=== PATIENT | female | born 1940 | race Caucasian/White ===

== ENCOUNTER 2020-10-23 02:03 | Emergency (ER) | payer MEDICARE, BC ==
[2020-10-23 02:12] VITALS: BP 126/74; PULSE 84
--- NOTE | 2020-10-23 02:18 | EDM.PDOC ---
ED HPI GENERAL MEDICAL PROBLEM - General Chief Complaint: Neuro Symptoms/Deficits Stated Complaint: POSS STROKE Time Seen by Provider: 10/23/20 02:08 - History of Present Illness INITIAL COMMENTS - FREE TEXT/NARRATIVE: Patient presents the emergency room with strokelike symptoms. Patient presented to the emergency department by private car she awoke with difficulty speaking swallowing and a right facial droop. She was able to ambulate on her own however. Her last known normal was about 7 PM Mountain time prior to this she took a couple of pain pills and went to bed. The patient just came out of right shoulder surgery and has her right shoulder in immobilizer. The surgery was done at [facility] in [place]. She had a negative Covid test done just prior to this. - Related Data Allergies Allergy/AdvReac Type Severity Reaction Status Date / Time metals Allergy Rash Uncoded 10/23/20 02:12 Home Meds: Home Meds Cholecalciferol (Vitamin D3) [Vitamin D] 2,000 unit PO DAILY 02/16/15 [History] Exenatide Microspheres [Bydureon] 2 mg SQ WEEKLY 02/16/15 [History] Ezetimibe [Zetia] 10 mg PO DAILY 02/16/15 [History] Furosemide [Lasix] 20 mg PO DAILY 02/16/15 [History] Levothyroxine [Synthroid] 100 mcg PO DAILY 02/16/15 [History] Loratadine [Alavert] 10 mg PO DAILY 02/16/15 [History] Multivitamin [Multivitamins] 1 tab PO DAILY 02/16/15 [History] Winton-3/DHA/Epa/Fish Oil [Fish Oil 1,000 mg Softgel] 1,000 mg PO DAILY 02/16/15 [History] Pravastatin Sodium 80 mg PO DAILY 02/16/15 [History] Ranitidine [Zantac] 150 mg PO BID 02/16/15 [History] carvediloL [Coreg] 12.5 mg PO DAILY 02/16/15 [History] Aspirin 81 mg PO DAILY 08/24/16 [History] Canagliflozin [Invokana] 1 tab PO DAILY 08/24/16 [History] Losartan [Cozaar] 50 mg PO DAILY 08/24/16 [History] Past Medical History HEENT History: Reports: Impaired Vision Cardiovascular History: Reports: CAD, High Cholesterol, Hypertension, Other (See Below) Other Cardiovascular History: does states has had cardiac workup including stress test and echocardiogram Respiratory History: Reports: Sleep Apnea, Other (See Below) Other Respiratory History: uses CPAP at bedtime Gastrointestinal History: Reports: Bowel Obstruction, Chronic Diarrhea, GERD Genitourinary History: Reports: Urinary Incontinence [employer] History: Reports: Musculoskeletal History: Reports: Arthritis, Back Pain, Chronic Endocrine/Metabolic History: Reports: Diabetes, Type II, Hypothyroidism Dermatologic History: Reports: Other (See Below) Other Dermatologic History: rash to mid back - Infectious Disease History Infectious Disease History: Reports: MRSA - Past Surgical History GI Surgical History: Reports: Appendectomy, Cholecystectomy, EGD, Hernia, Abdominal Musculoskeletal Surgical History: Reports: Knee Replacement, Other (See Below) Social & Family History - Family History Family Medical History: No Pertinent Family History - Caffeine Use Caffeine Use: Reports: Coffee ED ROS GENERAL - Review of Systems Review Of Systems: See Below Constitutional: Reports: No Symptoms HEENT: Reports: Other (Having difficulty with speech swallowing and has a facial droop on the right side) Respiratory: Reports: No Symptoms Cardiovascular: Reports: No Symptoms Endocrine: Reports: No Symptoms GI/Abdominal: Reports: No Symptoms : Reports: No Symptoms Musculoskeletal: Reports: Other (Recent right shoulder surgery) Skin: Reports: No Symptoms Neurological: Reports: Other (See history of present illness) ED EXAM, NEURO - Physical Exam Exam: See Below Exam Limited By: No Limitations General Appearance: Alert, Anxious, Other (She has an obvious expressive aphasia but otherwise is very cooperative) Eye Exam: Bilateral Eye: EOMI, Normal Inspection, PERRL Ears: Normal External Exam, Normal Canal, Hearing Grossly Normal, Normal TMs Nose: Normal Inspection, Normal Mucosa, No Blood Throat/Mouth: Normal Inspection, Normal Lips, Normal Teeth, Normal Gums, Normal Oropharynx, Normal Voice, No Airway Compromise Head Exam: Atraumatic, Normocephalic Neck: Normal Inspection, Supple, Non-Tender, Full Range of Motion. No: Lymphadenopathy (L), Lymphadenopathy (R) Respiratory/Chest: No Respiratory Distress, Lungs Clear, Normal Breath Sounds Cardiovascular: Normal Peripheral Pulses, Regular Rate, Rhythm, No Edema, No Murmur GI/Abdominal: Normal Bowel Sounds, Soft, Non-Tender Neurological: Other (Right shoulder is in the immobilizer she can wiggle her fingers left arm is fully movable on her own with good and normal strength lower extremity testing is assuring as can be done in the supine position on the examination [place]. However she might be just a little weaker on the left compared to the right) Back Exam: Normal Inspection. No: CVA Tenderness (L), CVA Tenderness (R) Extremities: Normal Inspection, No Pedal Edema Skin Exam: Warm, Dry, Intact #1 Interpretation EKG Date: 10/23/20 Rhythm: NSR Marion: LAD-Left Marion Deviation P-Wave: Present (First-degree AV block) QRS: Normal ST-T: Other (Nonspecific nondiagnostic change) QT: Normal Course - Vital Signs Last Recorded V/S: Last Vital Signs Temp 36.2 C 10/23/20 02:07 Pulse 84 10/23/20 02:07 Resp 16 10/23/20 02:07 BP 126/74 10/23/20 02:07 Pulse Ox 93 L 10/23/20 02:07 - Orders/Labs/Meds Orders: Active Orders 24 hr Category Date Time Status EKG Documentation Completion [RC] STAT Care 10/23/20 02:21 Active Chest 1V Frontal [CR] Stat Exams 10/23/20 02:21 Taken Head wo Cont [CT] Stat Exams 10/23/20 02:21 Taken CORONAVIRUS COVID-19 GERSON [MOLEC] Stat Lab 10/23/20 02:23 Ordered Labs: Laboratory Tests 10/23/20 10/23/20 10/23/20 Range/Units 02:06 02:43 02:43 WBC (3.98-10.04) K/mm3 RBC (3.98-5.22) M/mm3 Hgb (11.2-15.7) gm/dl Hct (34.1-44.9) % MCV (79.4-94.8) fl MCH (25.6-32.2) pg MCHC (32.2-35.5) g/dl RDW Std Deviation (36.4-46.3) fL Plt Count (182-369) K/mm3 MPV (9.4-12.3) fl Neut % (Auto) (34.0-71.1) % Lymph % (Auto) (19.3-51.7) % Pine % (Auto) (4.7-12.5) % Eos % (Auto) (0.7-5.8) Baso % (Auto) (0.1-1.2) % Neut # (Auto) (1.56-6.13) K/mm3 Lymph # (Auto) (1.18-3.74) K/mm3 Pine # (Auto) (0.24-0.36) K/mm3 Eos # (Auto) (0.04-0.36) K/mm3 Baso # (Auto) (0.01-0.08) K/mm3 PT 10.4 (9.7-12.0) SECONDS INR 0.97 APTT 22.7 (21.7-31.4) SECONDS Sodium 140 (136-145) mEq/L Potassium 3.9 (3.5-5.1) mEq/L Chloride 103 (98-107) mEq/L Carbon Dioxide 25 (21-32) mEq/L Anion Gap 15.9 H (5-15) BUN 20 H (7-18) mg/dL Creatinine 0.9 (0.55-1.02) mg/dL Est Cr Clr Drug Dosing 41.62 mL/min Estimated GFR (MDRD) 60 (>60) mL/min BUN/Creatinine Ratio 22.2 H (14-18) Glucose 142 H (83-115) mg/dL POC Glucose 132 H (83-110) mg/dL Calcium 8.7 (8.5-10.1) mg/dL Total Bilirubin 0.6 (0.2-1.0) mg/dL AST 26 (15-37) U/L ALT 9 L (14-59) U/L Alkaline Phosphatase 57 (46-116) U/L Troponin I 0.080 H* (0.00-0.056) ng/mL Total Protein 6.9 (6.4-8.2) g/dl Albumin 3.4 (3.4-5.0) g/dl Globulin 3.5 gm/dL Albumin/Globulin Ratio 1.0 (1-2) 10/23/20 Range/Units 02:43 WBC 9.07 (3.98-10.04) K/mm3 RBC 3.74 L (3.98-5.22) M/mm3 Hgb 11.5 D (11.2-15.7) gm/dl Hct 37.1 (34.1-44.9) % MCV 99.2 H (79.4-94.8) fl MCH 30.7 (25.6-32.2) pg MCHC 31.0 L (32.2-35.5) g/dl RDW Std Deviation 49.2 H (36.4-46.3) fL Plt Count 182 (182-369) K/mm3 MPV 10.8 (9.4-12.3) fl Neut % (Auto) 61.5 (34.0-71.1) % Lymph % (Auto) 23.9 (19.3-51.7) % Pine % (Auto) 12.0 (4.7-12.5) % Eos % (Auto) 2.4 (0.7-5.8) Baso % (Auto) 0.1 (0.1-1.2) % Neut # (Auto) 5.57 (1.56-6.13) K/mm3 Lymph # (Auto) 2.17 (1.18-3.74) K/mm3 Pine # (Auto) 1.09 H (0.24-0.36) K/mm3 Eos # (Auto) 0.22 (0.04-0.36) K/mm3 Baso # (Auto) 0.01 (0.01-0.08) K/mm3 PT (9.7-12.0) SECONDS INR APTT (21.7-31.4) SECONDS Sodium (136-145) mEq/L Potassium (3.5-5.1) mEq/L Chloride (98-107) mEq/L Carbon Dioxide (21-32) mEq/L Anion Gap (5-15) BUN (7-18) mg/dL Creatinine (0.55-1.02) mg/dL Est Cr Clr Drug Dosing mL/min Estimated GFR (MDRD) (>60) mL/min BUN/Creatinine Ratio (14-18) Glucose (83-115) mg/dL POC Glucose (83-110) mg/dL Calcium (8.5-10.1) mg/dL Total Bilirubin (0.2-1.0) mg/dL AST (15-37) U/L ALT (14-59) U/L Alkaline Phosphatase (46-116) U/L Troponin I (0.00-0.056) ng/mL Total Protein (6.4-8.2) g/dl Albumin (3.4-5.0) g/dl Globulin gm/dL Albumin/Globulin Ratio (1-2) - Re-Assessments/Exams Free Text/Narrative Re-Assessment/Exam: 10/23/20 03:08 CT is unremarkable for acute changes. Patients stroke score is 3 patient's case has been discussed with Dr. Penn, at 02:46 neurology at [facility] he recommends transfer. Case discussed with Dr. Adams at 02:50 emergency room physician who kindly accepts the patient in transfer. 10/23/20 04:15 Departure - Departure Time of Disposition: 03:00 Disposition: DC/Tfer to [facility] 02 Clinical Impression: CVA (cerebral vascular accident) - Discharge Information Referrals: Sinan Conley MD [Primary Care Provider] - Forms: ED Department Discharge Sepsis Event Note (ED) - Focused Exam Vital Signs: Vital Signs Temp Pulse Resp BP Pulse Ox 10/23/20 02:07 36.2 C 84 16 126/74 93 L - My Orders Last 24 Hours: My Active Orders 10/23/20 02:21 EKG Documentation Completion [RC] STAT Chest 1V Frontal [CR] Stat Head wo Cont [CT] Stat 10/23/20 02:23 CORONAVIRUS COVID-19 GERSON [MOLEC] Stat - Assessment/Plan Last 24 Hours: My Active Orders 10/23/20 02:21 EKG Documentation Completion [RC] STAT Chest 1V Frontal [CR] Stat Head wo Cont [CT] Stat 10/23/20 02:23 CORONAVIRUS COVID-19 GERSON [MOLEC] Stat
--- NOTE | 2020-10-23 08:34 | CR ---
Chest: Portable view of the chest was obtained. Comparison: Prior chest x-rays of 12/25/18 and 08/24/16. Right shoulder prosthesis is seen which is an interval change from prior study. Prior cervical spine surgery is noted which is stable. Previous lumbar spine surgery is noted which is stable. Heart size is minimally prominent which is an interval change. Tortuous thoracic aorta is seen. Lungs are clear with no acute parenchymal change. Impression: 1. Findings as noted above. 2. Nothing acute is seen on portable chest x-ray. Diagnostic code #2
--- NOTE | 2020-10-23 08:35 | CT ---
Head CT Technique: Multiple axial sections through the brain were obtained. Intravenous contrast was not utilized. Reconstructed coronal and sagittal images were obtained. Comparison: No prior intracranial imaging is available. Findings: Ventricles as well as basal cisterns and sulci over the convexities are mildly prominent. No abnormal parenchymal densities are seen. No evidence of intracranial hemorrhage. No midline shift or mass-effect is appreciated. Bone window settings were reviewed. Minimal area of mucosal thickening is noted within the right mastoid sinus which is most likely chronic. Visualized paranasal sinuses show nothing acute. No acute calvarial abnormality is appreciated. Slight calcification within the carotid siphon is noted. Impression: 1. Minimal senescent change. 2. Nothing acute is seen on noncontrast head CT exam. 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
== END 2020-10-23 04:34 ==
LOC: JD.ED 02:03
DX: I63.9 Cerebral infarction, unspecified (principal); I44.0 Atrioventricular block, first degree; I25.10 Atherosclerotic heart disease of native coronary artery without angina pectoris; E78.00 Pure hypercholesterolemia, unspecified; I10 Essential (primary) hypertension; K21.9 Gastro-esophageal reflux disease without esophagitis; M19.90 Unspecified osteoarthritis, unspecified site; E11.9 Type 2 diabetes mellitus without complications; E03.9 Hypothyroidism, unspecified; Z91.048 Other nonmedicinal substance allergy status; Z79.899 Other long term (current) drug therapy; Z79.82 Long term (current) use of aspirin
CPT/HCPCS: 36415; 70450; 70450-26; 71045; 71045-26; 80053; 82962; 84484; 85025; 85610; 85730; 93005; 93010; 99285; 99285-25

== ENCOUNTER 2020-12-16 14:40 | Emergency (ER) | payer MEDICARE, BC ==
[2020-12-16 15:05] VITALS: BP 187/78; PULSE 93
[2020-12-16] MEDS ORDERED: Ondansetron 4 MG/2 ML SDV IVPUSH ONE (15:31)
[2020-12-16] MEDS ORDERED: Sodium Chloride 0.9% 10 ML Syringe FLUSH PRN (15:31)
[2020-12-16] MEDS ORDERED: Sodium Chloride 0.9% 1,000 ML IV STA (15:31)
--- NOTE | 2020-12-16 17:15 | EDM.PDOC ---
ED HPI GENERAL MEDICAL PROBLEM - General Chief Complaint: Gastrointestinal Problem Stated Complaint: VOMITING/DIARRHEA Time Seen by Provider: 12/16/20 15:17 Source of Information: Reports: Patient, RN Notes Reviewed History Limitations: Reports: No Limitations - History of Present Illness INITIAL COMMENTS - FREE TEXT/NARRATIVE: Patient is an 80-year-old female presenting to the emergency department for evaluation with regards to onset of diarrhea and vomiting this morning. She states upon waking around 7 AM this morning, she started having watery diarrhea. Around 10 AM this morning she began vomiting. She denies any significant abdominal pain other than some cramping when she is about to have a bowel movement. She denies any fever or chills. She is had no chest pain or shortness of breath. She recently attended a graduation green party and a number of the other guests have become ill with similar symptoms. - Related Data Allergies Allergy/AdvReac Type Severity Reaction Status Date / Time metals Allergy Rash Uncoded 10/23/20 02:12 Home Meds: Home Meds Cholecalciferol (Vitamin D3) [Vitamin D] 2,000 unit PO DAILY 02/16/15 [History] Exenatide Microspheres [Bydureon] 2 mg SQ WEEKLY 02/16/15 [History] Ezetimibe [Zetia] 10 mg PO DAILY 02/16/15 [History] Furosemide [Lasix] 20 mg PO DAILY 02/16/15 [History] Levothyroxine [Synthroid] 100 mcg PO DAILY 02/16/15 [History] Loratadine [Alavert] 10 mg PO DAILY 02/16/15 [History] Multivitamin [Multivitamins] 1 tab PO DAILY 02/16/15 [History] [place]-3/DHA/Epa/Fish Oil [Fish Oil 1,000 mg Softgel] 1,000 mg PO DAILY 02/16/15 [History] Pravastatin Sodium 80 mg PO DAILY 02/16/15 [History] Ranitidine [Zantac] 150 mg PO BID 02/16/15 [History] carvediloL [Coreg] 12.5 mg PO DAILY 02/16/15 [History] Aspirin 81 mg PO DAILY 08/24/16 [History] Canagliflozin [Invokana] 1 tab PO DAILY 08/24/16 [History] Losartan [Cozaar] 50 mg PO DAILY 08/24/16 [History] Nitrofurantoin Monohyd/M-Cryst [Macrobid 100 mg Capsule] 100 mg PO BID 5 Days #9 capsule 12/16/20 [Rx] Ondansetron [Zofran ODT] 4 mg PO Q6H PRN #10 tab.dis 12/16/20 [Rx] Past Medical History HEENT History: Reports: Impaired Vision Cardiovascular History: Reports: CAD, High Cholesterol, Hypertension, Other (See Below) Other Cardiovascular History: does states has had cardiac workup including stress test and echocardiogram Respiratory History: Reports: Sleep Apnea, Other (See Below) Other Respiratory History: uses CPAP at bedtime Gastrointestinal History: Reports: Bowel Obstruction, Chronic Diarrhea, GERD Genitourinary History: Reports: Urinary Incontinence 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: Musculoskeletal History: Reports: Arthritis, Back Pain, Chronic Endocrine/Metabolic History: Reports: Diabetes, Type II, Hypothyroidism Dermatologic History: Reports: Other (See Below) Other Dermatologic History: rash to mid back - Infectious Disease History Infectious Disease History: Reports: Novel Coronavirus Other Infectious Disease History: MRSA hx - Past Surgical History HEENT Surgical History: Reports: Adenoidectomy, Tonsillectomy GI Surgical History: Reports: Appendectomy, Cholecystectomy, EGD, Hernia, Abdominal Female Surgical History: Reports: Hysterectomy Musculoskeletal Surgical History: Reports: Knee Replacement, Other (See Below) Other Musculoskeletal Surgeries/Procedures:: back surgery march 2015 Social & Family History - Family History Family Medical History: No Pertinent Family History - Tobacco Use Tobacco Use Status *Q: Never Tobacco User - Caffeine Use Caffeine Use: Reports: Coffee - Recreational Drug Use Recreational Drug Use: No ED ROS GENERAL - Review of Systems Review Of Systems: See Below Constitutional: Reports: No Symptoms. Denies: Fever, Chills, Weakness HEENT: Reports: No Symptoms Respiratory: Reports: No Symptoms Cardiovascular: Reports: No Symptoms Endocrine: Reports: No Symptoms GI/Abdominal: Reports: Diarrhea, Nausea, Vomiting. Denies: Abdominal Pain : Reports: No Symptoms Musculoskeletal: Reports: No Symptoms Skin: Reports: No Symptoms Neurological: Reports: No Symptoms Psychiatric: Reports: No Symptoms Hematologic/Lymphatic: Reports: No Symptoms Immunologic: Reports: No Symptoms ED EXAM, GI/ABD - Physical Exam Exam: See Below Exam Limited By: No Limitations General Appearance: Alert, WD/WN, No Apparent Distress Respiratory/Chest: No Respiratory Distress, Lungs Clear, Normal Breath Sounds, No Accessory Muscle Use, Chest Non-Tender Cardiovascular: Normal Peripheral Pulses, Regular Rate, Rhythm, No Edema, No Gallop, No JVD, No Murmur, No Rub GI/Abdominal Exam: Normal Bowel Sounds, Soft, Non-Tender, No Organomegaly, No Distention, No Abnormal Bruit, No Mass, Pelvis Stable Neurological: Alert, Oriented, CN II-XII Intact, Normal Cognition, Normal Gait, Normal Reflexes, No Motor/Sensory Deficits Psychiatric: Normal Affect, Normal Mood Skin Exam: Warm, Dry, Intact, Normal Color, No Rash #1 Interpretation EKG Date: 12/16/20 Time: 16:13 Rhythm: NSR Rate (Beats/Min): 77 [place]: Normal P-Wave: Present QRS: Normal ST-T: Normal QT: Normal EKG Interpretation Comments: Sinus Q's III, and AVF R wave progression precordial leads EKG interpreted by Dr. Celso MD. Course - Vital Signs Last Recorded V/S: Last Vital Signs Temp 97.1 F 12/16/20 14:57 Pulse 93 12/16/20 14:57 Resp 18 12/16/20 14:57 BP 187/78 H 12/16/20 14:57 Pulse Ox 98 12/16/20 14:57 - Orders/Labs/Meds Orders: Active Orders 24 hr Category Date Time Status CULTURE URINE [RM] Stat Lab 12/16/20 18:24 Received Peripheral IV Insertion Adult [OM.PC] Stat Oth 12/16/20 15:27 Ordered Labs: Laboratory Tests 12/16/20 12/16/20 12/16/20 Range/Units 15:49 15:49 16:42 WBC 8.56 (3.98-10.04) K/mm3 RBC 4.62 (3.98-5.22) M/mm3 Hgb 13.9 D (11.2-15.7) gm/dl Hct 44.0 (34.1-44.9) % MCV 95.2 H D (79.4-94.8) fl MCH 30.1 (25.6-32.2) pg MCHC 31.6 L (32.2-35.5) g/dl RDW Std Deviation 47.1 H (36.4-46.3) fL Plt Count 208 (182-369) K/mm3 MPV 10.6 (9.4-12.3) fl Neut % (Auto) 85.7 H (34.0-71.1) % Lymph % (Auto) 9.0 L (19.3-51.7) % Sharp % (Auto) 4.7 (4.7-12.5) % Eos % (Auto) 0.4 L (0.7-5.8) Baso % (Auto) 0.1 (0.1-1.2) % Neut # (Auto) 7.34 H (1.56-6.13) K/mm3 Lymph # (Auto) 0.77 L (1.18-3.74) K/mm3 Sharp # (Auto) 0.40 H (0.24-0.36) K/mm3 Eos # (Auto) 0.03 L (0.04-0.36) K/mm3 Baso # (Auto) 0.01 (0.01-0.08) K/mm3 Manual Slide Review Abnormal smear Sodium 143 (136-145) mEq/L Potassium 4.0 (3.5-5.1) mEq/L Chloride 105 (98-107) mEq/L Carbon Dioxide 24 (21-32) mEq/L Anion Gap 18.0 H (5-15) BUN 19 H (7-18) mg/dL Creatinine 0.9 (0.55-1.02) mg/dL Est Cr Clr Drug Dosing 38.12 mL/min Estimated GFR (MDRD) 60 (>60) mL/min BUN/Creatinine Ratio 21.1 H (14-18) Glucose 171 H (83-115) mg/dL Calcium 9.2 (8.5-10.1) mg/dL Total Bilirubin 0.6 (0.2-1.0) mg/dL AST 26 (15-37) U/L ALT 31 (14-59) U/L Alkaline Phosphatase 65 (46-116) U/L Troponin I < 0.017 (0.00-0.056) ng/mL C-Reactive Protein 1.3 H* (<1.0) mg/dL Total Protein 7.5 (6.4-8.2) g/dl Albumin 3.8 (3.4-5.0) g/dl Globulin 3.7 gm/dL Albumin/Globulin Ratio 1.0 (1-2) Urine Color (Yellow) Urine Appearance (Clear) Urine pH (5.0-8.0) Ur Specific [place] (1.005-1.030) Urine Protein (Negative) Urine Glucose (UA) (Negative) Urine Ketones (Negative) Urine Occult Blood (Negative) Urine Nitrite (Negative) Urine Bilirubin (Negative) Urine Urobilinogen (0.2-1.0) Ur Leukocyte Esterase (Negative) Urine RBC (0-5) /hpf Urine WBC (0-5) /hpf Ur Squamous Epith Cells (0-5) /hpf Urine Bacteria (FEW) /hpf Urine Mucus (FEW) /hpf SARS-CoV-2 RNA (GERSON) Negative (NEGATIVE) 12/16/20 Range/Units 18:24 WBC (3.98-10.04) K/mm3 RBC (3.98-5.22) M/mm3 Hgb (11.2-15.7) gm/dl Hct (34.1-44.9) % MCV (79.4-94.8) fl MCH (25.6-32.2) pg MCHC (32.2-35.5) g/dl RDW Std Deviation (36.4-46.3) fL Plt Count (182-369) K/mm3 MPV (9.4-12.3) fl Neut % (Auto) (34.0-71.1) % Lymph % (Auto) (19.3-51.7) % Sharp % (Auto) (4.7-12.5) % Eos % (Auto) (0.7-5.8) Baso % (Auto) (0.1-1.2) % Neut # (Auto) (1.56-6.13) K/mm3 Lymph # (Auto) (1.18-3.74) K/mm3 [place] # (Auto) (0.24-0.36) K/mm3 Eos # (Auto) (0.04-0.36) K/mm3 Baso # (Auto) (0.01-0.08) K/mm3 Manual Slide Review Sodium (136-145) mEq/L Potassium (3.5-5.1) mEq/L Chloride (98-107) mEq/L Carbon Dioxide (21-32) mEq/L Anion Gap (5-15) BUN (7-18) mg/dL Creatinine (0.55-1.02) mg/dL Est Cr Clr Drug Dosing mL/min Estimated GFR (MDRD) (>60) mL/min BUN/Creatinine Ratio (14-18) Glucose (83-115) mg/dL Calcium (8.5-10.1) mg/dL Total Bilirubin (0.2-1.0) mg/dL AST (15-37) U/L ALT (14-59) U/L Alkaline Phosphatase (46-116) U/L Troponin I (0.00-0.056) ng/mL C-Reactive Protein (<1.0) mg/dL Total Protein (6.4-8.2) g/dl Albumin (3.4-5.0) g/dl Globulin gm/dL Albumin/Globulin Ratio (1-2) Urine Color Yellow (Yellow) Urine Appearance Slt cloudy H (Clear) Urine pH 5.5 (5.0-8.0) Ur Specific [place] 1.025 (1.005-1.030) Urine Protein Negative (Negative) Urine Glucose (UA) 2+ H (Negative) Urine Ketones Trace H (Negative) Urine Occult Blood Trace-lysed H (Negative) Urine Nitrite Positive H (Negative) Urine Bilirubin Negative (Negative) Urine Urobilinogen 0.2 (0.2-1.0) Ur Leukocyte Esterase Negative (Negative) Urine RBC 0-5 (0-5) /hpf Urine WBC 0-5 (0-5) /hpf Ur Squamous Epith Cells 0-5 (0-5) /hpf Urine Bacteria Many H (FEW) /hpf Urine Mucus Not seen (FEW) /hpf SARS-CoV-2 RNA (GERSON) (NEGATIVE) Meds: Medications Discontinued Medications Generic Name Dose Route Start Last Admin Trade Name Freq PRN Reason Stop Dose Admin Sodium Chloride 1,000 mls @ 999 mls/hr 12/16/20 15:31 12/16/20 16:41 Normal Saline IV 12/16/20 16:31 999 mls/hr NOW STA Administration Nitrofurantoin Macrocrystals 100 mg 12/16/20 19:25 12/16/20 19:30 Nitrofurantoin Monohydrate/Macrocrystalline 100 Mg Cap PO 12/16/20 19:26 100 mg ONETIME ONE Administration Ondansetron HCl 4 mg 12/16/20 15:31 12/16/20 16:39 Ondansetron 4 Mg/2 Ml Sdv IVPUSH 12/16/20 15:32 4 mg ONETIME ONE Administration Sodium Chloride 10 ml 12/16/20 15:31 12/16/20 16:39 Sodium Chloride 0.9% 10 Ml Syringe FLUSH 10 ml ASDIRECTED PRN Administration Keep Vein Open - Re-Assessments/Exams Free Text/Narrative Re-Assessment/Exam: Patient is an 80-year-old female presenting to the emergency department for evaluation with regards to nausea, vomiting, and diarrhea which began this morning. She has had a number of known sick contacts at a recent graduation green party she went to. Approximately 4 of the other guests in attendance developed similar symptoms. She has no abdominal pain other than some cramping with diarrhea. Exam is grossly unremarkable. I have ordered 1 L of normal saline bolus, and Zofran 4 mg IV. I will complete blood work and urinalysis. 12/16/20 19:28 Hematology was significant for anion gap elevated at 18.0, glucose 171, CRP 1.3. Blood work was otherwise unremarkable. Urinalysis is nitrite positive with many bacteria. Covid is negative. Patient is feeling much better after the fluids and Zofran. She has been tolerating clear liquids well with no further nausea or vomiting. She has had a few episodes of mild diarrhea since she has been here. She is comfortable being discharged home. I will give her first dose of Macrobid here and then sent a prescription for that and Zofran for nausea to [facility]. She requested it be sent to [facility] [address] however they are not open until tomorrow morning. She states that she will be fine for the evening. She does have a follow-up with her primary care provider at 1230 tomorrow. Discussed return precautions. Discharge instructions as documented. Departure - Departure Time of Disposition: 19:26 Disposition: Home, Self-Care 01 Condition: Good Clinical Impression: Gastroenteritis UTI (urinary tract infection) Qualifiers: Urinary tract infection type: acute cystitis Hematuria presence: without hematuria Qualified Code(s): N30.00 - Acute cystitis without hematuria - Discharge Information *PRESCRIPTION DRUG MONITORING PROGRAM REVIEWED*: No *COPY OF PRESCRIPTION DRUG MONITORING REPORT IN PATIENT KAIA: No Prescriptions: Nitrofurantoin Monohyd/M-Cryst [Macrobid 100 mg Capsule] 100 mg PO BID 5 Days #9 capsule Ondansetron [Zofran ODT] 4 mg PO Q6H PRN #10 tab.dis PRN Reason: Nausea/Vomiting Instructions: Viral Gastroenteritis, Adult, [id number], Urinary Tract Infection, Adult, [id number] Referrals: Sinan Conley MD [Primary Care Provider] - Forms: ED Department Discharge Additional Instructions: You were seen in the emergency department today for evaluation with regards to nausea, vomiting, and diarrhea which began this morning. Work-up included blood work, and urinalysis. Results of your work-up did show that you were slightly dehydrated but were otherwise normal. Urinalysis did show a urinary tract infection. While in the ER, you received IV fluids, Zofran for nausea, and your first dose of Macrobid for treatment of urinary tract infection. Recommend clear liquid diet for the next 24 to 72 hours and then slowly advance as tolerated. A prescription for Macrobid as well as Zofran for nausea has been sent to [facility] [place]. Take these medical occasions as prescribed. If your symptoms should worsen and you are unable to keep fluids down or you experience any other new symptoms of concern, you should return to the emergency department for reevaluation. Sepsis Event Note (ED) - Evaluation Sepsis Screening Result: No Definite Risk - Focused Exam Vital Signs: Vital Signs Temp Pulse Resp BP Pulse Ox 12/16/20 14:57 97.1 F 93 18 187/78 H 98 - My Orders Last 24 Hours: My Active Orders 12/16/20 15:27 Peripheral IV Insertion Adult [OM.PC] Stat 12/16/20 18:24 CULTURE URINE [RM] Stat - Assessment/Plan Last 24 Hours: My Active Orders 12/16/20 15:27 Peripheral IV Insertion Adult [OM.PC] Stat 12/16/20 18:24 CULTURE URINE [RM] Stat
[2020-12-16] MEDS ORDERED: Nitrofurantoin Monohydrate/Macrocrystalline 100 MG Cap PO ONE (19:25)
== END 2020-12-16 19:50 | disposition home or self-care (01) ==
LOC: JD.ED 14:40
DX: K52.9 Noninfective gastroenteritis and colitis, unspecified (principal); N30.00 Acute cystitis without hematuria; I25.10 Atherosclerotic heart disease of native coronary artery without angina pectoris; E78.00 Pure hypercholesterolemia, unspecified; I10 Essential (primary) hypertension; M19.90 Unspecified osteoarthritis, unspecified site; E11.9 Type 2 diabetes mellitus without complications; Z79.84 Long term (current) use of oral hypoglycemic drugs; E03.9 Hypothyroidism, unspecified; K21.9 Gastro-esophageal reflux disease without esophagitis; Z20.822 Contact with and (suspected) exposure to COVID-19; Z91.048 Other nonmedicinal substance allergy status; Z79.899 Other long term (current) drug therapy; Z79.82 Long term (current) use of aspirin
CPT/HCPCS: 36415; 80053; 81001; 84484; 85025; 86140; 87086; 87088; 87186; 93005; 96374; 99284; A9270; J2405; J7030; U0002; 93010